=== PATIENT | female | born 1940 | race Two or more races ===

== ENCOUNTER 2018-04-27 06:48 | Day surgery (SDC) | payer MEDICARE, BC ==
[~2018-04-27] VITALS: Ht 152.4 cm; Wt 52.2 kg
[2018-04-27] VITALS (9 sets, daily range): BP systolic 110–144; BP diastolic 49–82
--- NOTE | 2018-04-27 06:40 | Anethesia Preoperative Eval ---
Anesthesia Pre-op PMH/ROS General Date of Evaluation: Apr 27, 2018 Time of Evaluation: 06:38 Anesthesiologist: mikel ASA Score: ASA 3 Mallampati Score Class I : Soft palate, uvula, fauces, pillars visible Class II: Soft palate, uvula, fauces visible Class III: Soft palate, base of uvula visible Class IV: Only hard plate visible Mallampati Classification: Class II Surgeon: mukesh Diagnosis: gerd, bloating Surgical Procedure: egd/colonoscopy Anesthesia History: none Family History: no anesthesia problems Allergies: Coded Allergies: ACETAMINOPHEN (Verified Allergy, Severe, 04/27/18) HIVES PAMABROM (Verified Allergy, Severe, 04/27/18) HIVES Medications: see eMAR Past Medical History Gastrointestinal/Genitourinary: Reports: GERD Neurologic/Psychiatric: Reports: other - migraine headache Musculoskeletal/Integumentary: Reports: other - bilateral carpal tunnel syndrome Anesthesia Pre-op Phys. Exam Physician Exam Constitutional: NAD Neurologic: CN 2-12 intact Cardiovascular: RRR Respiratory: CTA Gastrointestinal: S/NT/ND Airway Exam Mallampati Score: Class II MO: limited Neck: supple TMD: 2fb ROM: limited Anesthesia Pre-op A/P Risk Assessment & Plan Assessment: asa Plan: mac Status Change Before Surgery: No Pre-Antibiotics Drug: Nakia Sousa MD Apr 27, 2018 06:40
[~2018-04-27 06:48] MED LIST: Atropine Inj 1mg/10ml Syr IV PRN; DiphenhydrAMINE 50mg/ml Inj IVP PRN; LR 1000ml 1,000 ML IVLG SCH; Labetalol 5mg/ml 20ml vial IV PRN; Midazolam 2mg/2ml Inj IVP PRN; fentaNYL 100 mcg/2 mL IV PRN
[2018-04-27] MEDS ORDERED: LR 1000ml 1,000 ML IVLG SCH (07:00)
[2018-04-27] MEDS ORDERED: LORAZEPAM1 MG ORAL (07:34)
[2018-04-27] MEDS ORDERED: CRESTOR10 M2 ORAL (07:34)
[2018-04-27] MEDS ORDERED: Lidocaine 1% MPF 10mg/ml 5ml ONE (08:00)
[2018-04-27] MEDS ORDERED: LR 1000ml ONE (08:00)
[2018-04-27] MEDS ORDERED: Propofol 200mg/20ml IV ONE (08:00)
--- NOTE | 2018-04-27 08:19 | Short Stay Surgery H&P ---
History of Present Illness History of Present Illness Chief Complaint see H&P HPI Isabela Lehman is a 78 year old female who was admitted on for Gerd And Bloating Patient History Allergies: Coded Allergies: ACETAMINOPHEN (Verified Allergy, Severe, 04/27/18) HIVES PAMABROM (Verified Allergy, Severe, 04/27/18) HIVES Medication History Scheduled Lorazepam* (Lorazepam*), 1 MG ORAL BED, (Reported) Rosuvastatin Calcium* (Crestor*), 10 MG ORAL DAILY, (Reported) Physical Exam Vital Signs Last Vital Signs Date Time Temp Pulse Resp B/P (MAP) Pulse Ox O2 Delivery O2 Flow Rate FiO2 04/27/18 07:21 98.0 72 20 110/49 (69) 100 98.0 04/27/18 07:17 Room Air Plan Attestation Are the patient's medical conditions optimized for surgery? Giuliano Stevens MD Apr 27, 2018 08:19
--- NOTE | 2018-04-27 08:20 | Pre-Procedure Note/Attestation ---
Pre-Procedure Note/Attestation Complete Prior to Procedure Planned Procedure: not applicable Procedure Narrative: EGD, Colon Indications for Procedure Pre-Operative Diagnosis: GERD, screen Attestation I attest that I discussed the nature of the procedure; its benefits; risks and complications; and alternatives (and the risks and benefits of such alternatives ), prior to the procedure, with the patient (or the patient's legal vendor representatives). I attest that, if there was a reasonable possibility of needing a blood transfusion, the patient (or the patient's legal vendor representatives) was given the [facility] standardized written summary, pursuant to the Gavin Navi Blood Safety Act ([place] Health and Safety Code # 1645, as amended). I attest that I re-evaluated the patient just prior to the surgery and that there has been no change in the patient's H&P, except as documented below: Giuliano Stevens MD Apr 27, 2018 08:19
--- NOTE | 2018-04-27 09:06 | Endoscopy Procedure Note ---
Endoscopy Procedure Note General Indication for Procedure: bloating, discomfort, constipation, RONN Procedures Performed: EGD, colonoscopy Operative Findings/Diagnosis: 1-2 cm , diffuse melanosis, rhoid tag Specimen: yes Pt Tolerated Procedure Well: Yes Estimated Blood Loss: none Anesthesia Anesthesiologist: destinee frost Anesthesia: MAC Medications Medication Given: see anesthesia record Inserted Devices Implant(s) used?: No GI Core Measures 50 yrs or older w/o bx or poly: No 10yrs. F/U not recommended: Yes If not recommended, why?: 10 yrs. F/U needed: Yes 18 years or older w/prev. colo: Yes <3yrs. since last colonoscopy: No Med reason:<3 yrs.: Last colonoscopy >= to 3yrs: No Giuliano Stevens MD Apr 27, 2018 09:06
--- NOTE | 2018-04-27 09:08 | Brief Operative Note ---
Immediate Post Operative Note Operative Note Chief Complaint: GERD,bloat, abd discomfort, constipation Pre-op Diagnosis: GERD, screen Procedure: EGD, bx, colon Post-op Diagnosis: HH x 1-2 cm, bx duo, ant, LE, Colon Surgeon: mukesh Anesthesiologist: Lenin frost Anesthesia: MAC Specimen: yes Complications: none Fluids: Recorded Estimated Blood Loss: none Drains: none Implant(s) used?: No Giuliano Stevens MD Apr 27, 2018 09:08
[2018-04-27] MEDS ORDERED: Ketorolac 30mg Inj ONE (09:16)
[2018-04-27] MEDS ORDERED: Ketorolac 30mg Inj IV SCH (09:30)
--- NOTE | 2018-04-27 09:32 | Immediate Post-Op Evaluation ---
Immediate Post-Op Evalulation Immediate Post-Op Evalulation Procedure: egd/colonoscopy/bx Date of Evaluation: Apr 27, 2018 Time of Evaluation: 09:12 IV Fluids: 400ml lr Blood Products: none Estimated Blood Loss: negligible Blood Pressure Systolic: 120 Blood Pressure Diastolic: 77 Pulse Rate: 60 Respiratory Rate: 18 O2 Sat by Pulse Oximetry: 99 Temperature (Fahrenheit): 97.3 Pain Score (1-10): 0 Nausea: No Vomiting: No Complications none Patient Status: awake, reacts, patent Hydration Status: adequate Drug: Nakia Sousa MD Apr 27, 2018 09:32
--- NOTE | 2018-04-27 09:33 | 48 Hour Post Anesthesia Eval ---
Post Anesthesia Evaluation Procedure: egd/colonoscopy/bx Date of Evaluation: Apr 27, 2018 Time of Evaluation: 09:14 Blood Pressure Systolic: 138 0: 65 Pulse Rate: 60 Respiratory Rate: 18 Temperature (Fahrenheit): 97.3 O2 Sat by Pulse Oximetry: 99 Airway: patent Nausea: No Vomiting: No Pain Intensity: 0 Hydration Status: adequate Cardiopulmonary Status: stable Mental Status/LOC: patient returned to baseline Post-Anesthesia Complications: none Follow-up care needed: N/A Nakia Cabral MD Apr 27, 2018 09:33
--- NOTE | 2018-04-27 19:15 | Operative Note - Dictated ---
DATE OF OPERATION: 04/27/2018 PROCEDURE: Upper gastrointestinal endoscopy with biopsy as well as colonoscopy. SURGEON: Giuliano Stevens M.D. ANESTHESIA: Please see the separate anesthesiologist notes for details. PRE-ENDOSCOPIC DIAGNOSIS: Bloating symptoms, gastroesophageal reflux, distention, abdominal discomfort, and need for screening colonoscopy. POST-ENDOSCOPIC DIAGNOSES: 1. A 1 to 2 cm hiatal hernia. 2. Status post random biopsy of the duodenum, antrum and lower esophagus. 3. Diffuse melanosis coli throughout the colon. 4. Normal terminal ileum to 5 cm. 5. Hemorrhoidal skin tag seen on retroflexion in the rectum as well as on rectal examination. DESCRIPTION OF PROCEDURE: The procedure, its risks, indications, alternatives, and possible complications were explained to the patient and informed consent was obtained. The patient was then sedated in the left lateral decubitus position. A diagnostic upper endoscope was introduced through the oropharynx and advanced to the duodenum without difficulty. The endoscope was then gradually withdrawn and the mucosa examined carefully. Examination of the upper gastrointestinal mucosa revealed a 1 to 2 cm hiatal hernia. Photo documentation was obtained and biopsies were sent to pathology for review as described above. The endoscope was removed and colonoscope was introduced into the rectum and advanced to the terminal ileum. The colonoscope was then gradually withdrawn and the mucosa was examined carefully. Examination of the terminal ileal mucosa revealed no abnormalities for about 5 cm into the terminal ileum. The colonic lining showed diffuse melanosis coli, which was of moderate degree. Retroflexed view of the rectum as well as digital examination showed rubbery hemorrhoidal tag tissue. The colonoscope was removed and the patient was sent to recovery in good condition. COMPLICATIONS: None. RECOMMENDATIONS: 1. Follow up biopsy results. 2. Outpatient followup. 3. Reflux precautions. 4. Check and treat Helicobacter pylori if positive. 5. Long-term bowel regimen. Thank you for asking me to participate in the care of this patient. Giuliano Stevens M.D. DR: YING JOB#: [id number] CC: Carmen Gregory M.D.
== END 2018-04-27 10:35 | disposition home or self-care (01) ==
LOC: GAS 06:48
DX: K21.9 Gastro-esophageal reflux disease without esophagitis (principal); K44.9 Diaphragmatic hernia without obstruction or gangrene; K64.4 Residual hemorrhoidal skin tags; K63.89 Other specified diseases of intestine; E04.9 Nontoxic goiter, unspecified; Z88.6 Allergy status to analgesic agent; Z88.8 Allergy status to other drugs, medicaments and biological substances
CPT/HCPCS: 43239; 45378; J1885; J2704; J7120; 94003; 94150